=== PATIENT | male | born 1950 | race Caucasian/White ===

== ENCOUNTER 2018-11-04 09:58 | Emergency (ER) | payer MEDICARE ==
[~2018-11-04] VITALS: Ht 180.3 cm; Wt 109.8 kg
--- NOTE | 2018-11-04 10:36 | PHYS DOC ---
Adult General Chief Complaint Chief Complaint: MECHANICAL FALL HPI HPI Patient is a 68 year old male presenting emergency room with blood with ejaculation. Apparently he fell he slipped as he was trying to take the garbage cans out at 4 AM he did almost like a split he tells me and he developed a small minor pain in his left groin near his inguinal ligament he then went inside and had intercourse. He was concerned because there was some blood in his ejaculate. he did not have any blood in the urine Review of Systems Review of Systems Not have any blood in the urine Constitutional: Denies fever or chills [] Eyes: Denies change in visual acuity, redness, or eye pain [] HENT: Denies nasal congestion or sore throat [] Respiratory: Denies cough or shortness of breath [] Integument: Denies rash or skin lesions [] Neurologic: Denies headache, focal weakness or sensory changes [] All other systems were reviewed and found to be within normal limits, except as documented in this note. Allergies Allergies Allergies Coded Allergies Type Severity Reaction Last Updated Verified No Known Drug Allergies 11/04/18 No Physical Exam Physical Exam Constitutional: Well developed, well nourished, no acute distress, non-toxic appearance. [] HENT: Normocephalic, atraumatic, bilateral external ears normal, oropharynx moist, no oral exudates, nose normal. [] Eyes: PERRLA, EOMI, conjunctiva normal, no discharge. [] Neck: Normal range of motion, no tenderness, supple, no stridor. [] Pulmonary: Normal respiratory effort no increased work of breathing no obvious chest wall trauma Abdomen: Bowel sounds normal, soft, no tenderness, no masses, no pulsatile masses. [] Skin: Warm, dry, no erythema, no rash. [] : THERE IS MILD TTP OF THE LEFT EPIDIYMIS AND LEFT INGUINAL LIGAMENT NO TRAUMA SEEN. [] Extremities: No tenderness, no cyanosis, no clubbing, ROM intact, no edema. [] Neurologic: Alert and oriented X 3, normal motor function, normal sensory function, no focal deficits noted. [] Psychologic: Affect normal, judgement normal, mood normal. [] Current Patient Data Vital Signs Vital Signs Date Time Temp Pulse Resp B/P (MAP) Pulse Ox O2 Delivery O2 Flow Rate FiO2 11/04/18 11:25 78 18 97 11/04/18 10:15 97.1 155/98 (117) Room Air 95.0 97.1 Lab Values Laboratory Tests Test 11/04/18 10:06 Urine Collection Type Unknown Urine Color Yellow Urine Clarity Clear Urine pH 7.0 Urine Specific [place] <=1.005 Urine Protein Negative mg/dL (NEG-TRACE) Urine Glucose (UA) Negative mg/dL (NEG) Urine Ketones (Stick) Negative mg/dL (NEG) Urine Blood Small (NEG) Urine Nitrite Negative (NEG) Urine Bilirubin Negative (NEG) Urine Urobilinogen Dipstick 0.2 mg/dL (0.2 mg/dL) Urine Leukocyte Esterase Negative (NEG) Urine RBC 3-5 /HPF (0-2) Urine WBC Rare /HPF (0-4) Urine Squamous Epithelial Cells Occ /LPF Urine Bacteria 0 /HPF (0-FEW) EKG EKG [] Radiology/Procedures Radiology/Procedures [] Impressions: IMPRESSION: 1. Normal blood flow bilateral testis. 2. A 1.1 cm left epididymal head cyst is identified. 3. Small bilateral hydroceles. Electronically signed by: Philipp Guzmán MD (11/04/2018 11:06 AM) [id number] Course & Med Decision Making Course & Med Decision Making Pertinent Labs and Imaging studies reviewed. (See chart for details) 60-year-old male who presents with a groin strain and some hematospermia. Ultrasound was essentially negative acute. Patient is overall well-appearing no obvious signs of trauma on examination he is urinating well without difficulty no gross blood in his urine. Perhaps it is STRAINING of his vas deference he was advised to rest and avoid sexual activity for 5-7 days and return to his urologist who he has followed with for his hydrocele should he have any further hematospermia return here sooner for abdominal pain vomiting fever or any other concerns. Dragon Disclaimer Dragon Disclaimer This electronic medical record was generated, in whole or in part, using a voice recognition dictation system. Departure Departure Impression: Primary Impression: Hematospermia Disposition: 01 HOME, SELF-CARE Condition: IMPROVED Referrals: UNKNOWN PCP NAME (PCP) DEBBIE CANELA MD Nov 04, 2018 10:36
[2018-11-04 10:59] LABS: BILIRUBIN,URINE NEGATIVE (NEG); CLARITY,URINE CLEAR; COLOR,URINE YELLOW; NITRITE,URINE NEGATIVE (NEG); PROTEIN,URINE NEGATIVE (NEG-TRACE); UROBILINOGEN,URINE 0.2 mg/dL (0.2 mg/dL)
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
[2018-11-04 11:13] LABS: BACTERIA,URINE 0 /HPF (0-FEW); SQUAMOUS EPITHELIAL CELL,UR OCC /LPF; WBC,URINE RARE /HPF (0-4)
[2018-11-04 11:25] VITALS: BP 131/65
== END 2018-11-04 11:54 | disposition home or self-care (01) ==
LOC: ER 09:58
DX: R36.1 Hematospermia (principal); N50.3 Cyst of epididymis; N43.3 Hydrocele, unspecified; R10.32 Left lower quadrant pain; G89.11 Acute pain due to trauma; W01.0XXA Fall on same level from slipping, tripping and stumbling without subsequent striking against object, initial encounter; Y93.89 Activity, other specified; Y92.89 Other specified places as the place of occurrence of the external cause; Y99.8 Other external cause status
CPT/HCPCS: 76870; 81001; 99284-25